=== PATIENT | male | born 1945 | race Caucasian/White ===

== ENCOUNTER 2023-12-08 15:00 | Inpatient (IN) | payer MEDICARE, SELFPAY ==
[2023-12-08 09:44] VITALS: BP 143/71
--- NOTE | 2023-12-08 11:03 | ED.GENMED ---
History of Present Illness
General
Chief Complaint: Rectal Bleeding
Source: patient
Exam Limitations: none
Time Seen by Provider: 12/08/23 10:53
Travel History
Have you had any contact with someone who has COVID-19?: No
Do you have any symptoms of coronavirus? Fever > 100 degrees, chills, cough, shortness of breath, sore throat, loss of taste or smell, muscle aches, or headache?: No
History of Present Illness
History of Present Illness:
Patient started with dark stool 3 to 4 days ago. Slightly loose. Saw his physician yesterday who ordered blood work. Was anemic and sent for evaluation. No rectal exam done in the primary office. Patient denies abdominal pain basically feels
well. He is on a DOAC. Xarelto for atrial fibrillation. He did not take it last evening per his doctor. He started a PPI yesterday.
Past History
Past History
ED Past Medical History: Arrthythmia, HTN and Hypercholesterolemia
ED Past Surgical History: Cardiac (Atrial fibrillation ablation) and Orthopedic
Review of Systems
Review of Systems
All Other Systems: Not applicable
Respiratory: Reports no symptoms
Cardiac: Reports no symptoms
ABD/GI: Denies abdominal pain
Phy Exam
Physical Exam
Physical Exam:
GENERAL: Alert and oriented in no apparent distress
EYE: Orbits normal.
NECK: Supple
CARDIAC: Regular rate and rhythm without any obvious murmurs.
LUNGS: Clear breath sounds,normal
ABDOMEN: Soft, without focal tenderness or distention. Rectal mildly dark and test positive
NEUROLOGICAL: Alert and oriented , grossly non-focal
SKIN: Warm and dry, no rash or lesion, no discoloration, skin intact.
MUSCULOSKELETAL: No edema,no deformity.Good color
PSYCH: Normal and appropriate interaction.
Course
Orders/Labs/Results
Orders:
Orders
12/08/23 11:02
Electrocardiogram (*1) Stat
Reason for Study: Other
Other Reason for Exam: GI Bleed
Cardiac Monitoring- Treatment ONCE
EKG- Treatment ONCE
IV Insert/Care/Rem.- Treatment PRN
Pulse Ox/cont/shift [RESP] Stat
Quantity: 1
12/08/23 11:03
Pantoprazole [Protonix IV] 80 mg IV NOW STA
12/08/23 12:26
Type+Screen Urgent
Complete Blood Count/With Diff Urgent
Comprehensive Metabolic Panel Urgent
Ferritin Urgent
Comment: ADD ON
Folate Urgent
Comment: ADD ON
Iron Urgent
Comment: ADD ON
PTT Urgent
Prothrombin Time Urgent
Total Iron Binding Urgent
Comment: ADD ON
Transferrin [S] Urgent
Comment: ADD ON
Vitamin B12 Urgent
Comment: ADD ON
12/08/23 14:34
Admit/Transfer Patient As Directed
Co-Sign Provider:
Level of Care: Inpatient admission
Assign to:: Telemetry
Physician / Group: juan j cummings
Diagnosis: GI bleed
Reason for Telemetry: Arrhythmia
Date to Stop Telemetry: 12/11/23
Time to Stop Telemetry: 11:00
Reason for Hospitalization: GI bleed
Expected length of stay greater than two midnights?: Yes
ELOS- Estimated Length of Stay in days: 3
I certify the patient meets the requirements for IP care: Yes
12/08/23 14:35
Code Status As Directed
Resuscitation Status: Full Code
12/08/23 14:37
Add On- LAB Routine
Tests Added?: iron, ferritin, transferrin, TIBC, B12, folate
12/08/23 14:38
GASTROINTESTINAL CONSULT Routine
Consulting Provider: Fernanda Lockhart
Was physician already notified: Yes
12/08/23 20:00
H&H Q6H
12/09/23 02:00
H&H Q6H
12/09/23 08:00
H&H Q6H
12/11/23 11:00
DC Protocol for Telemetry ONCE
Abnormal Lab Results
12/08/23
12:26
WBC 4.6 L 10^3/uL
(4.8-10.8)
RBC 3.28 L 10^6/uL
(4.70-6.10)
Hgb 10.2 L g/dL
(13.0-18.0)
Hct 30.6 L %
(39.0-52.0)
MCH 31.1 H pg
(27.0-31.0)
MPV 11.8 H fL
(7.4-10.4)
Absolute Lymphs (auto) 1.1 L 10^3/uL
(1.2-3.4)
PT 14.9 H Sec
(11.4-14.6)
BUN 22 H mg/dl
(9-20)
Glucose 123 H mg/dl
(70-99)
12/08/23 12:26
12/08/23 12:26
Vital Signs
Initial and Last Documented VS:
Initial Vital Signs
Temp Pulse Resp BP Pulse Ox
97.8 F 70 20 143/71 98
12/08/23 09:44 12/08/23 09:44 12/08/23 09:44 12/08/23 09:44 12/08/23 09:44
Last Documented Vital Signs
Temp Pulse Resp BP Pulse Ox
97.8 F 78 19 141/64 98
12/08/23 09:44 12/08/23 15:11 12/08/23 15:11 12/08/23 15:06 12/08/23 15:09
MDM/Problems Addressed
Differential Diagnosis Includes:
Likely upper GI bleed. Clinically stable. Labs pending. Protonix ordered.
*Critical Care Note
Total Time (30-74mins, 75-104mins- exclusive of procedures): Not Applicable
ED Attending Note
-
Portions of this chart may have been created with voice recognition software.� Occasional wrong word or��sound alike� substitutions may have occurred due to the inherent limitations of voice recognition software.
Discharge Plan
Departure
Patient Disposition: Admit
Date of Disposition: 12/08/23
Time of Disposition: 13:32
Presentation/result/management discussed w/ accepting MD/DO: Hospitalist
Discharge Problem:
Upper GI bleed, Anemia
Interventions
Interventions:
*Risk Screen - Suicide Last Done: 12/08/23 09:44
*General Assessment Last Done: 12/08/23 09:44
*Neglect/Abuse Screening Last Done: 12/08/23 09:44
ED- Fall Risk Assessment Last Done: 12/08/23 15:09
SA-Tpozpy-Uyotqtyvmp Assessment Last Done: 12/08/23 15:09
ED- Cardiac Assessment Last Done: 12/08/23 15:09
ED- Pulmonary Assessment Last Done: 12/08/23 15:09
[2023-12-08] MEDS: PROTONIX IV 80 MG IV (12:20)
[2023-12-08 12:36] LABS: % Basophils 0.9 % (0-2); % Eosinophils 1.5 % (0-6); % Monocytes 8.1 % (1.7-9.3); % Neutrophils 66.5 % (42.2-75.2); Absolute Eosinophils 0.1 10^3/uL (0-0.7); Absolute Lymphocytes 1.1 10^3/uL (1.2-3.4); Absolute Monocytes 0.4 10^3/uL (0.1-0.6); Hematocrit 30.6 % (39.0-52.0); Hemoglobin 10.2 g/dL (13.0-18.0); Mean Corp Hgb Conc. 33.3 g/dL (33.0-37.0); Mean Corpuscular Hgb 31.1 pg (27.0-31.0); Mean Corpuscular Volume 93.3 fL (80.0-94.0); Mean Platelet Volume 11.8 fL (7.4-10.4); Nucleated Red Blood Cells % 0 % (-); Platelet Count 145 10^3/uL (130-400); Red Blood Cell Count 3.28 10^6/uL (4.70-6.10); White Blood Cell Count 4.6 10^3/uL (4.8-10.8)
[2023-12-08 12:49] LABS: ALT (SGPT) 23 U/L (0-50); AST (SGOT) 25 U/L (17-59); Alkaline Phosphatase 64 U/L (38-126); Blood Urea Nitrogen 22 mg/dl (9-20); Calcium 9.2 mg/dl (8.4-10.2); Carbon Dioxide 27 mmol/L (22-30); Chloride 107 mmol/L (98-107); Glucose 123 mg/dl (70-99); Potassium 4.4 mmol/L (3.5-5.1); Sodium 135 mmol/L (135-145); Total Bilirubin 0.4 mg/dl (0.2-1.3); Total Protein 6.4 g/dl (6.3-8.2); eGFR > 60.00
[2023-12-08 13:11] LABS: INR 1.18; PT 14.9 Sec (11.4-14.6)
[2023-12-08 13:12] LABS: APTT 31.7 Sec (23.4-35.0)
--- NOTE | 2023-12-08 14:39 | HPS.HSE ---
Family Physician
-
Family Physician: PHYSICIAN PRIVATE
Chief Complaint
-
Rectal bleeding
History of Present Illness
78-year-old male with past medical history of atrial fibrillation, BPH, hypertension, GERD, hyperlipidemia came to the hospital with few days of dark stool. Per patient he went to his primary care physician since he noted his stools were dark in
the ER ordered blood work yesterday. Hemoglobin today came out to 10.2. His hemoglobin was 14's in August. Denies any abdominal pain. Denies any NSAID use. Does take Xarelto for atrial fibrillation. Given his bleeding he did not take his
Xarelto last night. Did had recent colonoscopy with multiple polyps that were removed. Currently denies any nausea, vomiting, diarrhea, constipation. Denies any chest pain, shortness of breath.
Medical History
Past Medical History
Past Medical History: Reports Arrhythmia, HTN, Hypercholesterolemia and Other (BPH)
Past Surgical History: Reports Cardiac (Ablation) and Orthopedic
Social History
Tobacco: Non-smoker
Family History
Family History: Not pertinent
Allergies / Home Medications
Allergies reflects when Allergies were last updated in [employer].
Home Medications with original date entered in [employer]
Allergy/Medication List:
Allergies
Allergy/AdvReac Type Severity Reaction Status Date / Time
hay fever Allergy Itching/sneezing, Uncoded 05/12/22 23:05
runny nose
Home Medications
atorvastatin 10 mg tablet (Lipitor) 10 mg PO QPM 08/29/21
diltiazem HCl 120 mg capsule,extended release 24 hr 120 mg PO BID 08/29/21
famotidine 20 mg tablet 20 mg PO HS 08/29/21
losartan 25 mg tablet 25 mg PO QPM 08/29/21
acetaminophen 500 mg tablet (Tylenol Extra Strength) 500 mg PO Q6HPRN PRN mild pain 09/07/21
cholecalciferol (vitamin D3) 50 mcg (2,000 unit) tablet 2,000 unit PO QPM 09/07/21
rivaroxaban 20 mg tablet (Xarelto) 20 mg PO QPM #90 tabs 09/07/21
tamsulosin 0.4 mg capsule 0.4 mg PO DAILY #30 caps 09/08/21
finasteride 5 mg tablet (Proscar) 5 mg PO DAILY 12/08/23
pantoprazole 40 mg tablet,delayed release (Protonix) 40 mg PO DAILY 12/08/23
Review of Systems
-
History Source: Patient
A 12 point ROS was completed and negative except as noted: Yes
Abdomen/GI: Reports Black Stools
Physical Exam
Vital Signs
Vital Signs
Temp Pulse Resp BP Pulse Ox
97.8 F 70 20 143/71 98
12/08/23 09:44 12/08/23 09:44 12/08/23 09:44 12/08/23 09:44 12/08/23 09:44
Physical Exam
General: Well Nourished and No Apparent Distress
HEENT: Anicteric and Moist mucous membranes
Respiratory: Clear and Non Labored Respirations; No Wheezes
Cardiac: S1/S2 and Regular Rhythm
Breast: Deferred by me
GI: Soft, Non Tender and Non Distended
Genito-urinary: Deferred by me
Musculoskeletal: No Edema
Neuro: Awake, Alert, Oriented and AO x 3
Psych: Calm and Intact Judgment/Insight
Laboratory Results
-
12/08/23 12:26
12/08/23 12:26
Laboratory Results
PT 14.9 Sec (11.4-14.6) H 12/08/23 12:26
INR 1.18 12/08/23 12:26
APTT 31.7 Sec (23.4-35.0) 12/08/23 12:26
Total Bilirubin 0.4 mg/dl (0.2-1.3) 12/08/23 12:26
AST 25 U/L (17-59) 12/08/23 12:26
ALT 23 U/L (0-50) 12/08/23 12:26
Alkaline Phosphatase 64 U/L (38-126) 12/08/23 12:26
Data Reviewed
-
Lab Data: Labs Reviewed by me and Discussed with Patient
Impression/Plan
-
Melena suspect upper GI bleed
80 mg IV Lasix followed by PPI drip
check serial H/H
GI consult
Hold Xarelto, last dose 12/05
Clears for now
Check iron panel, B12, folate
Follows up with GI at [place], last colonoscopy in September with multiple polyps that were removed. Had EGD about 3 years ago showed hiatal hernia
Paroxysmal atrial fibrillation status post ablation
Continue with diltiazem
Hold Xarelto
History of GERD
Hiatal hernia
History of hypertension
Hold losartan
BPH
Continue tamsulosin, finasteride
Hyperlipidemia
DVT prophylaxis
SCDs
Full code
I spent a total of 77 minutes with the patient or on the floor. More than 50% of this time involved counseling and coordination of care.
[2023-12-08 15:06] VITALS: BP 141/64
[2023-12-08 15:18] LABS: Iron 77 ug/dl (49-181)
[2023-12-08 15:27] LABS: Percent Saturation 28 % (20-50); Total Iron Binding Capacity 274 ug/dl (261-462)
[2023-12-08 16:00] VITALS: BP 140/82
[2023-12-08 16:27] VITALS: BP 154/69
[2023-12-08 16:28] VITALS: BMI 31.1
[2023-12-08 17:03] LABS: Ferritin 48.7 ng/ml (17.9-464.0)
[2023-12-08] MEDS: VITAMIN D3 (cholecalciferol) 50 MCG PO (17:04)
[2023-12-08] MEDS: PROTONIX 100 IV (17:04)
[2023-12-08] MEDS: LIPITOR 10 MG PO (17:04)
[2023-12-08 17:34] LABS: Folate 19.2 ng/ml (2.76-20); Vitamin B12 311 pg/ml (239-931)
[2023-12-08 19:06] VITALS: BP 158/71
[2023-12-08] MEDS: CARDIZEM CD 120 MG PO (19:47)
[2023-12-08 19:53] LABS: Hematocrit 28.5 % (39.0-52.0); Hemoglobin 9.8 g/dL (13.0-18.0)
[2023-12-08] MEDS: PEPCID 20 MG PO (21:08)
[2023-12-08 23:23] VITALS: BP 144/76
[2023-12-09 02:09] LABS: Hematocrit 29.2 % (39.0-52.0); Hemoglobin 10.2 g/dL (13.0-18.0)
[2023-12-09] MEDS: PROTONIX 100 IV ×3 (02:09→23:18)
[2023-12-09 03:14] VITALS: BP 128/66
[2023-12-09 06:00] VITALS: BMI 30.8
[2023-12-09 07:03] VITALS: BP 137/69
[2023-12-09] MEDS: FLOMAX 0.400000000000000022 MG PO (08:14)
[2023-12-09] MEDS: CARDIZEM CD 120 MG PO ×2 (08:14→20:20)
[2023-12-09] MEDS: PROSCAR 5 MG PO (08:14)
[2023-12-09 09:13] LABS: % Eosinophils 2.6 % (0-6); % Immature Granulocytes 0.2 % (0-0.5); % Monocytes 9.5 % (1.7-9.3); % Neutrophils 62.7 % (42.2-75.2); Absolute Eosinophils 0.1 10^3/uL (0-0.7); Absolute Monocytes 0.4 10^3/uL (0.1-0.6); Absolute Neutrophils 2.6 10^3/uL (1.4-6.5); Hematocrit 31.7 % (39.0-52.0); Hemoglobin 10.5 g/dL (13.0-18.0); Mean Corp Hgb Conc. 33.1 g/dL (33.0-37.0); Mean Corpuscular Volume 93.5 fL (80.0-94.0); Mean Platelet Volume 11.7 fL (7.4-10.4); Nucleated Red Blood Cells % 0 % (-); Platelet Count 155 10^3/uL (130-400); Red Blood Cell Count 3.39 10^6/uL (4.70-6.10); Red Cell Dist. Width 13.8 % (11.5-14.5); White Blood Cell Count 4.2 10^3/uL (4.8-10.8)
[2023-12-09 09:35] LABS: Blood Urea Nitrogen 16 mg/dl (9-20); Calcium 9.3 mg/dl (8.4-10.2); Carbon Dioxide 25 mmol/L (22-30); Chloride 106 mmol/L (98-107); Estimated Creatinine Clearance 65 ml/min; Glucose 143 mg/dl (70-99); Potassium 4.6 mmol/L (3.5-5.1); Sodium 134 mmol/L (135-145); eGFR > 60.00
[2023-12-09] MEDS: VITAMIN B-12 1000 MCG PO (09:54)
[2023-12-09 09:55] VITALS: BMI 30.8
[2023-12-09 11:39] VITALS: BP 122/70
--- NOTE | 2023-12-09 12:06 | CON.GI ---
Consultation
-
Date/Time Consultation Requested: 12/08/2023
Date/Time Consultation Performed: 12/09/2023
Requesting Provider: Dr. Harry
Performing Provider: Dr. Lockhart
Reason for Consultation: Dark stool
Medical History
Chief Complaint / HPI
Chief Complaint: Dark stool
History of Present Illness:
78-year-old male with history of atrial fibrillation on Xarelto presenting with complaints of dark stools since Sunday. As per patient he noticed dark stool Sunday, that persisted into , went to see PCP on Sunday, had blood work that
showed hemoglobin in the 10 range which is lower than his normal range. He was asked to go to the emergency room for persistent dark stool. He reports history of intermittent right upper quadrant abdominal discomfort in the last 1 year, not
persistent, rare episodes but he did have some twinges of pain in the right upper quadrant in the last couple of days. No nausea or vomiting. No heartburn, takes Pepcid at night. He was started on Protonix on Sunday by PCP. No trouble
swallowing. Normal bowel movement pattern is 1 formed stool a day, no pushing or straining, he did have an episode of black stool 5 years ago and apparently went to his GI doctor Dr. gonzalez and off at [place]. Upper endoscopy showing hiatal
hernia but no ulcer noted as per patient. He has not been on a PPI. Family history of colon cancer in father at age 64, patient had colonoscopy in September 2023, reports having 8 polyps removed. Cannot recall when he was asked to come back. No
loss of appetite, unintentional weight loss or NSAID use.
Reviewing labs, hemoglobin in August 2021 was 14.2, emergency room it was 10.2 and today 10.5. Normocytic. Iron studies in normal range. Black stool noted in the ER which was heme positive.
Reviewed CT scan of the chest in 2021, small sliding hiatal hernia, moderate fatty atrophy of the pancreas and few cysts noted in the left hepatic lobe.
Past Medical History
Past Medical History: Arrhythmias (A fibrillation), GERD, HTN and Hypercholesterolemia
Past Surgical History: Other (b/l hip replacements, Knee replacement,cardiac ablation)
Social History
Tobacco: Non-Smoker
Alcohol: Daily
Family History
Family History: Other (father with colon cancer at age 64)
Allergies / Home Medications
Allergy/AdvReac Type Severity Reaction Status Date / Time
hay fever Allergy Itching/sneezing, Uncoded 05/12/22 23:05
runny nose
�Medication �Instructions �Recorded
atorvastatin 10 mg tablet (Lipitor) 10 mg PO QPM 08/29/21
diltiazem HCl 120 mg 120 mg PO BID 08/29/21
capsule,extended release 24 hr
famotidine 20 mg tablet 20 mg PO HS 08/29/21
losartan 25 mg tablet 25 mg PO QPM 08/29/21
acetaminophen 500 mg tablet 500 mg PO Q6HPRN PRN mild pain 09/07/21
(Tylenol Extra Strength)
cholecalciferol (vitamin D3) 50 2,000 unit PO QPM 09/07/21
mcg (2,000 unit) tablet
rivaroxaban 20 mg tablet (Xarelto) 20 mg PO QPM #90 tabs 09/07/21
tamsulosin 0.4 mg capsule 0.4 mg PO DAILY #30 caps 09/08/21
finasteride 5 mg tablet (Proscar) 5 mg PO DAILY 12/08/23
pantoprazole 40 mg tablet,delayed 40 mg PO DAILY 12/08/23
release (Protonix)
Review of Systems
-
All other systems: A 12 pt ROS was Negative except as stated above in HPI
Respiratory: Reports Other (SOB on exertion)
Neurological: Reports Other (dizzy/lh)
Vital Signs
Temp Pulse Resp BP Pulse Ox
97.6 F 63 18 122/70 97
12/09/23 11:39 12/09/23 11:39 12/09/23 11:39 12/09/23 11:39 12/09/23 11:39
Physical Exam
Exam
HEENT: Normocephalic
Respiratory: Clear
Cardiac: S1/S2
GI: Soft, Non Tender, Non Distended and Normal Bowel Sounds
Neuro: AO x 3
Results
WBC 4.2 10^3/uL (4.8-10.8) L 12/09/23 08:17
Hgb 10.5 g/dL (13.0-18.0) L 12/09/23 08:17
Hgb Cancelled 12/09/23 08:17
Hct 31.7 % (39.0-52.0) L 12/09/23 08:17
Hct Cancelled 12/09/23 08:17
MCV 93.5 fL (80.0-94.0) 12/09/23 08:17
Plt Count 155 10^3/uL (130-400) 12/09/23 08:17
Absolute Neuts (auto) 2.6 10^3/uL (1.4-6.5) 12/09/23 08:17
PT 14.9 Sec (11.4-14.6) H 12/08/23 12:26
INR 1.18 12/08/23 12:26
APTT 31.7 Sec (23.4-35.0) 12/08/23 12:26
Sodium 134 mmol/L (135-145) L 12/09/23 08:17
Potassium 4.6 mmol/L (3.5-5.1) 12/09/23 08:17
Chloride 106 mmol/L (98-107) 12/09/23 08:17
Carbon Dioxide 25 mmol/L (22-30) 12/09/23 08:17
BUN 16 mg/dl (9-20) 12/09/23 08:17
Creatinine 1.1 mg/dL (0.7-1.3) 12/09/23 08:17
Calcium 9.3 mg/dl (8.4-10.2) 12/09/23 08:17
Total Bilirubin 0.4 mg/dl (0.2-1.3) 12/08/23 12:26
AST 25 U/L (17-59) 12/08/23 12:26
ALT 23 U/L (0-50) 12/08/23 12:26
Alkaline Phosphatase 64 U/L (38-126) 12/08/23 12:26
Diagnostic Image Results:
Prior GI Procedures:
EGD:
Colonoscopy:
Assessment / Plan
-
78-year-old male with history of atrial fibrillation on Xarelto, hypertension, GERD, presenting with dark stool, heme positive and drop in hemoglobin with normocytic indices. History of hiatal hernia as per patient in the past and history of
multiple polyps with a family history of colon cancer. Occasional twinges of right upper quadrant abdominal pain.
-Black stool with anemia and drop in hemoglobin, hemodynamically stable
On Xarelto, no NSAID use. History of hiatal hernia
Rule out esophagitis, Guevara's lesions, ulcer disease versus other
On clear liquid diet, n.p.o. past midnight
Continue PPI drip.
Monitor H&H and transfuse if needed.
-Right upper quadrant abdominal discomfort with normal LFTs
Will check abdominal ultrasound
-History of liver cyst noted as well on prior CT of the chest, no pancreatic cysts but pancreatic parenchymal fatty replacement noted
-Family history of colon cancer in father
-
-
Thank you for consultation and allowing me to participate in the patient's care. Please call the sheet rock installation helper GI physician during the after hours with any questions or concerns.
--- NOTE | 2023-12-09 12:17 | W.PN.HOSP.TC ---
Today's Communication/Plan
-
Monitor vital signs see plan
Past midnight for EGD tomorrow
Continue with PPI
Monitor hgb
Assessment / Plan
Assessment / Plan
General: Well Nourished and No Apparent Distress
HEENT: Anicteric and Moist mucous membranes
Respiratory: Clear and Non Labored Respirations; No Wheezes
Cardiac: S1/S2 and Regular Rhythm
Breast: Deferred by me
GI: Soft, Non Tender and Non Distended
Genito-urinary: Deferred by me
Musculoskeletal: No Edema
Neuro: Awake, Alert, Oriented and AO x 3
Psych: Calm and Intact Judgment/Insight
Melena suspect upper GI bleed
cw PPI
GI consult
Hold Xarelto, last dose 12/05
Clears for now; n.p.o. past midnight for EGD
Iron panel suggest low iron stores, start IV iron. Low vitamin B12 so we will replete
Follows up with GI at [place], last colonoscopy in September with multiple polyps that were removed. Had EGD about 3 years ago showed hiatal hernia
Paroxysmal atrial fibrillation status post ablation
Continue with diltiazem
Hold Xarelto
Mild right upper quadrant pain
Ultrasound abdomen ordered by GI
monitor
Mild hyponatremia
monitor
History of GERD
Hiatal hernia
History of hypertension
Hold losartan
BPH
Continue tamsulosin, finasteride
Hyperlipidemia
DVT prophylaxis
SCDs
Full code
Anticipated Discharge: 24 - 48 hours
Subjective/Interval History
-
Date of Service: December 09, 2023
Denies pain
Objective Data
-
Labs:
Laboratory Results
12/09/23 12/09/23 12/09/23
02:02 08:17 08:17
WBC 4.2 L
Hgb 10.2 L 10.5 L Cancelled
Hct 29.2 L 31.7 L
Plt Count
Sodium
Potassium
Chloride
Carbon Dioxide
BUN
Creatinine
Glucose
Calcium
12/09/23
08:17
WBC
Hgb
Hct Cancelled
Plt Count 155
Sodium 134 L
Potassium 4.6
Chloride 106
Carbon Dioxide 25
BUN 16
Creatinine 1.1
Glucose 143 H
Calcium 9.3
Vital Signs:
Vital Signs
Temp Pulse Resp BP Pulse Ox
97.6 F 63 18 122/70 97
12/09/23 11:39 12/09/23 11:39 12/09/23 11:39 12/09/23 11:39 12/09/23 11:39
I&O
12/08/23 12/09/23 12/10/23
06:59 06:59 06:59
Intake Total 700 / 700
Balance 700 / 700
[2023-12-09] MEDS: FERRLECIT 110 MG IV (15:07)
[2023-12-09 15:57] VITALS: BP 124/63
--- NOTE | 2023-12-09 16:07 | CM ---
met with patient at bedside.patient lives alone in a house with 1 die[address],his bed and bath is on second level,he is totally independent amb and with his adl's.he has no dme.his pcp is dr cely kwong and he uses [facility].hr jessa
a vn or been to rehab.he is very active and plays sports at [employer].
patient with a hx of afib and htn is adm with rectal bleed.cont iv ppi,for egd tomorrow.patient will have no needs when dc home.
[2023-12-09] MEDS: LIPITOR 10 MG PO (17:40)
[2023-12-09] MEDS: VITAMIN D3 (cholecalciferol) 50 MCG PO (17:40)
[2023-12-09 19:22] VITALS: BP 153/67
[2023-12-09] MEDS: PEPCID 20 MG PO (21:56)
[2023-12-09 23:29] VITALS: BP 126/62
[2023-12-10] VITALS (8 sets, daily range): BP systolic 96–154; BP diastolic 57–79; BMI 30.4
[2023-12-10 08:03] LABS: % Eosinophils 3.3 % (0-6); % Immature Granulocytes 0.2 % (0-0.5); % Monocytes 9.4 % (1.7-9.3); % Neutrophils 55.1 % (42.2-75.2); Absolute Basophils 0.1 10^3/uL (0-0.2); Absolute Eosinophils 0.2 10^3/uL (0-0.7); Absolute Lymphocytes 1.5 10^3/uL (1.2-3.4); Absolute Monocytes 0.5 10^3/uL (0.1-0.6); Absolute Neutrophils 2.7 10^3/uL (1.4-6.5); Hematocrit 33.5 % (39.0-52.0); Hemoglobin 11.1 g/dL (13.0-18.0); Mean Corp Hgb Conc. 33.1 g/dL (33.0-37.0); Mean Corpuscular Hgb 30.8 pg (27.0-31.0); Mean Corpuscular Volume 93.1 fL (80.0-94.0); Mean Platelet Volume 11.8 fL (7.4-10.4); Nucleated Red Blood Cells % 0 % (-); Platelet Count 171 10^3/uL (130-400); Red Cell Dist. Width 13.8 % (11.5-14.5); White Blood Cell Count 4.9 10^3/uL (4.8-10.8)
[2023-12-10] MEDS: CARDIZEM CD 120 MG PO (08:18)
[2023-12-10] MEDS: FLOMAX 0.400000000000000022 MG PO (08:18)
[2023-12-10] MEDS: PROSCAR 5 MG PO (08:18)
[2023-12-10] MEDS: VITAMIN B-12 1000 MCG PO (08:18)
[2023-12-10 08:59] LABS: Blood Urea Nitrogen 14 mg/dl (9-20); Calcium 9.8 mg/dl (8.4-10.2); Carbon Dioxide 23 mmol/L (22-30); Chloride 105 mmol/L (98-107); Estimated Creatinine Clearance 59 ml/min; Glucose 124 mg/dl (70-99); Potassium 4.4 mmol/L (3.5-5.1); Sodium 136 mmol/L (135-145); eGFR > 60.00
--- NOTE | 2023-12-10 09:41 | W.PN.UPDATE ---
Update Note
Progress Note Update
s/p EGD for melena
- No gross lesions in the entire esophagus.
- Z-line regular, 40 cm from the incisors.
- Small hiatal hernia.
- A small amount of food (residue) in the stomach.
- Bilious gastric fluid.
- Normal examined duodenum.
- No specimens collected.
Plan
- Rectal exam after the procedure with dark heme positive dark stool.
- Ideally, patient needs a colonoscopy, but patient wants to go with the small bowel capsule study as outpatient as he had colonoscopy at [facility] in September.
- Patient aware that he may have to come back to the hospital if he continues to have the dark stool on the Xarelto and he says he prefers to do that instead of inpatient colonoscopy.
- OK for Xarelto today and Low residue diet.
- Needs H/H with PCP's office later this week.
--- NOTE | 2023-12-10 10:39 | W.PN.HOSP.TC ---
Addendum entered and electronically signed by Luis Gonzalez DO 12/10/23 14:10:
Ultrasound right upper quadrant negative for cholelithiasis or bile duct dilation.
Discharge today. Resume Xarelto tonight. Discussed with patient.
Outpatient follow-up.
CBC later this week with PCP.
Original Note:
Today's Communication/Plan
-
Right upper quadrant ultrasound
Resume diet
Discharge
Assessment / Plan
Assessment / Plan
Gen-AAOx3, NAD
HEENT-NC, AT, anicteric, clear oral mm
Neck-supple
CV-reg, no M, +S1/S2
Lungs-clear B/L
Abd-soft, NT, ND
Ext-no edema
Musculoskeletal-no cyanosis, clubbing
Skin-warm and dry
Neuro-grossly non-focal
Psych-calm, cooperative
Acute GI bleed -presentation with melena. EGD completed today shows no gross lesions in the entire esophagus, small hiatal hernia, small amount of food in the stomach, bilious gastric fluid, normal examined duodenum. No specimens collected. GI
service offered colonoscopy to patient, patient declined and prefers outpatient capsule endoscopy as he just had a colonoscopy 2 months ago.
Iron panel suggest low iron stores, start IV iron. Low vitamin B12 so we will replete
Follows up with GI at [place], last colonoscopy in September 2023 with 8 polyps that were removed. Had EGD about 3 years ago showed hiatal hernia
Paroxysmal atrial fibrillation status post ablation
Continue with diltiazem
GI recommends resuming Xarelto tonight.
Mild right upper quadrant pain -resolved. LFTs normal.
Ultrasound abdomen ordered by GI
monitor
Mild hyponatremia -resolved.
History of GERD
Hiatal hernia
History of hypertension -resume losartan.
BPH
Continue tamsulosin, finasteride
Hyperlipidemia
DVT prophylaxis
SCDs
Full code
Dispo -stable for discharge today after ultrasound completed, if results normal. CBC later this week. Outpatient follow-up with GI.
32 minutes spent in discharge process.
Anticipated Discharge: Today
Subjective/Interval History
-
Date of Service: December 10, 2023
Patient seen and examined. No complaints.
Objective Data
-
Labs:
Laboratory Results
12/10/23
07:27
WBC 4.9
Hgb 11.1 L
Hct 33.5 L
Plt Count 171
Sodium 136
Potassium 4.4
Chloride 105
Carbon Dioxide 23
BUN 14
Creatinine 1.2
Glucose 124 H
Calcium 9.8
Vital Signs:
Vital Signs
Temp Pulse Resp BP Pulse Ox
98.2 F 63 18 154/69 96
12/10/23 10:33 12/10/23 10:33 12/10/23 10:33 12/10/23 10:33 12/10/23 10:33
I&O
12/09/23 12/10/23 12/11/23
06:59 06:59 06:59
Intake Total 700 / 700 1130 / 1130
Balance 700 / 700 1130 / 1130
Review of Systems
-
History Source: Patient
All other systems: Reviewed and negative
--- NOTE | 2023-12-10 10:41 | PTCARENOTE ---
Pt returned from GI lab s/p endoscopy. Pt ambulated into room with x1 assist and VSS. NPO status maintained for [facility] US. Pt has call rees within reach.
[2023-12-10] MEDS: PROTONIX IV (10:51)
--- NOTE | 2023-12-10 14:10 | W.DS.TRANS ---
DC Summary - [employer]
-
Discharge Instructions:
Sleep Apnea Risk High
Discharge Diagnosis/Procedures GI bleed, anemia
Diet Low Residue
Activity As tolerated
Driving Restrictions As prior to admission
Bathing Restrictions None
Blood Work CBC later this week with your primary care
doctor
Instructions:
Stand-Alone Forms:
Changes to Home Medications: No
Discharge Medications:
DC Medications w/original date entered in [facility]
atorvastatin 10 mg tablet (Lipitor) 10 mg PO QPM 08/29/21
diltiazem HCl 120 mg capsule,extended release 24 hr 120 mg PO BID 08/29/21
famotidine 20 mg tablet 20 mg PO HS 08/29/21
losartan 25 mg tablet 25 mg PO QPM 08/29/21
acetaminophen 500 mg tablet (Tylenol Extra Strength) 500 mg PO Q6HPRN PRN mild pain 09/07/21
cholecalciferol (vitamin D3) 50 mcg (2,000 unit) tablet 2,000 unit PO QPM 09/07/21
rivaroxaban 20 mg tablet (Xarelto) 20 mg PO QPM #90 tabs 09/07/21
tamsulosin 0.4 mg capsule 0.4 mg PO DAILY #30 caps 09/08/21
finasteride 5 mg tablet (Proscar) 5 mg PO DAILY 12/08/23
pantoprazole 40 mg tablet,delayed release (Protonix) 40 mg PO DAILY 12/08/23
cyanocobalamin (vitamin B-12) 1,000 mcg tablet 1,000 mcg PO DAILY #60 tabs 12/10/23
Home Medication Changes
Pending Results: No
--- NOTE | 2023-12-10 15:15 | PTCARENOTE ---
IV discontinued. Tele pack removed. Discharge paperwork printed and reviewed with patient who verbalized understanding. Pt transported off the floor via wheelchair with all belongings from the room.
[2023-12-10 19:14] LABS: Transferrin 205 mg/dL (200-360)
== END 2023-12-10 15:21 | disposition home or self-care (01) | DRG 378 ==
LOC: 4 EAST ACU 15:00
PROVIDERS: ADMITTING PHYSICIAN Internal Medicine; ATTENDING PHYSICIAN Hospitalist; CONSULT PHYSICIAN Internal Medicine Gastroenterology; EMERGENCY PHYSICIAN Emergency Medicine
PROC: 0DJ08ZZ Inspection of Upper Intestinal Tract, Via Natural or Artificial Opening Endoscopic (ICD-10-PCS; 2023-12-10)
DX: K92.2 Gastrointestinal hemorrhage, unspecified (principal); D62 Acute posthemorrhagic anemia; E87.1 Hypo-osmolality and hyponatremia; I48.0 Paroxysmal atrial fibrillation; K44.9 Diaphragmatic hernia without obstruction or gangrene; I10 Essential (primary) hypertension; N40.0 Benign prostatic hyperplasia without lower urinary tract symptoms; E78.00 Pure hypercholesterolemia, unspecified; K92.1 Melena; Z79.01 Long term (current) use of anticoagulants
CPT/HCPCS: 76700; 80048; 80053; 82607; 82728; 82746; 83540; 83550; 84466; 85014; 85018; 85025; 85610; 85730; 86850; 86900; 86901; 93005; 94760; 96374; 99285; J2916